=== PATIENT | female | born 1980 | race Caucasian/White ===

== ENCOUNTER 2016-12-16 10:30 | Emergency (ER) | payer MEDICAID ==
[~2016-12-16] VITALS: Ht 157.5 cm; Wt 76.2 kg
[2016-12-16 10:37] VITALS: BP 103/58
--- NOTE | 2016-12-16 10:45 | NUR ---
36/F C/O HEADACHE ,BODY ACHES AND FEVER X3 DAYS . PT FEELS NAUSEA NOTED AT THIS TIME BUT DENIES V/D; SKIN IS PINK/WARM/DRY; AAOX4 WITH EVEN AND STEADY GAIT; LUNGS CLEAR BL; HR EVEN AND REGULAR; PT DENIES ANY FEVER, CP, SOB, OR COUGH AT THIS TIME; PATIENT STATES PAIN OF 8/10 AT THIS TIME; PATIENT POSITIONED FOR COMFORT; HOB ELEVATED; BEDRAILS UP X2; BED DOWN. ER MD MADE AWARE OF PT STATUS.
[2016-12-16] MEDS ORDERED: diphenhydrAMINE 50 MG/ML VIAL IVP ONE ×2 (11:25→13:35)
[2016-12-16] MEDS ORDERED: NACL 0.9% 1,000 ML IV ONE (11:25)
[2016-12-16] MEDS ORDERED: KETOROLAC 30 MG/ML VIAL IVP ONE (11:25)
[2016-12-16] MEDS ORDERED: METOCLOPRAMIDE 10 MG/2 ML INJ VIAL IVP ONE (11:25)
[2016-12-16] MEDS ORDERED: ACETAMINOPHEN EXTRA STRENGTH 500 MG TAB PO ONE (13:00)
--- NOTE | 2016-12-16 13:05 | NUR ---
GAVE TYLENO 1OOO MG FOR FEFER AFTER 15 MINS PT HAS RASH TO NECK & FACE BUT DENIES DIFFICULT BREATHING, ER MD DR OCHOA NOTIFIED. AWARE.
--- NOTE | 2016-12-16 13:05 | NUR ---
GAVE TYLENOL 1OOO MG PO FOR FEFER AFTER THAT 15 MINS PT HAS RASH TO NECK & FACE BUT DENIES DIFFICULT BREATHING, ER MD DR OCHOA NOTIFIED. AWARE.
[2016-12-16] MEDS ORDERED: IBUPROFEN 800 MG TAB PO ONE (13:55)
--- NOTE | 2016-12-16 14:20 | NUR ---
NO RASH TO FACE & NECK NOTED AT THIS TIME
[2016-12-16 14:40] VITALS: BP 102/54
--- NOTE | 2016-12-16 14:40 | NUR ---
Note saadiayue in EDM - 12/16/16 at 1458 by [facility] Patient discharged with STABLE CONDITION . Written and verbal after care instructions given and explained. Patient alert, oriented and verbalized understanding of instructions. Ambulatory with steady gait. All questions addressed prior to discharge. ID band removed. Patient advised to follow up with PMD. Rx of NORCO, CIPRO &MOTRIN given. Patient educated on indication of medication including possible reaction and side effects. Opportunity to ask questions provided and answered.
== END 2016-12-16 14:40 | disposition home or self-care (01) ==
LOC: MED 10:30
DX: N12 Tubulo-interstitial nephritis, not specified as acute or chronic (principal); R51 Headache; Z88.6 Allergy status to analgesic agent; Z90.49 Acquired absence of other specified parts of digestive tract
CPT/HCPCS: 81002; 81025; 96361; 96374; 96375; 96376; 99284; J1200; J1885; J2765; J7030